=== PATIENT | female | born 1945 | race Caucasian/White ===

== ENCOUNTER 2016-11-03 15:35 | Emergency (ER) | payer MEDICARE, OTHER ==
[~2016-11-03] VITALS: Ht 149.9 cm; Wt 56.8 kg
[2016-11-03] MEDS ORDERED: ACETAMINOPHEN 500 MG TABLET PO ONE (16:00)
[2016-11-03] MEDS ORDERED: PERTUSS(ACELL),DIPH,TET VAC/PF 0.5 ML VIAL IM ONE (16:15)
[2016-11-03] MEDS ORDERED: FentaNYL CITRATE-PF 100 MCG/2 ML VIAL IVP ONE (17:30)
[2016-11-03] MEDS ORDERED: MIDAZOLAM HCL 5 MG/ML VIAL IVP ONE (17:30)
[2016-11-03] MEDS ORDERED: FLUMAZENIL 0.1 MG/ML 5 ML VIAL IVP ONE (17:50)
[2016-11-03] MEDS ORDERED: NALOXONE HCL 1 MG/ML 2 ML SYG ONE (17:50)
[2016-11-03 18:39] VITALS: BP 104/63
== END 2016-11-03 19:48 | disposition home or self-care (01) ==
LOC: EMS 15:45
DX: S52.531A Colles' fracture of right radius, initial encounter for closed fracture (principal); S80.212A Abrasion, left knee, initial encounter; S80.211A Abrasion, right knee, initial encounter; I10 Essential (primary) hypertension; E11.9 Type 2 diabetes mellitus without complications; W19.XXXA Unspecified fall, initial encounter; Y93.89 Activity, other specified; Y92.89 Other specified places as the place of occurrence of the external cause; Y99.8 Other external cause status
CPT/HCPCS: 25605; 73100; 73110; 90471; 90715; 96374; 96375; 99285; J2250; J3010; 82962; J2310; J3490

== ENCOUNTER 2016-11-10 11:32 | Emergency (ER) | payer MEDICARE, OTHER ==
[~2016-11-10] VITALS: Ht 149.9 cm; Wt 56.8 kg
[2016-11-10 12:03] LABS: GLUCOSE,POINT OF CARE 244 MG/DL (70-110)
[2016-11-10 15:08] VITALS: BP 129/68
== END 2016-11-10 15:13 | disposition home or self-care (01) ==
LOC: EMS 11:34
DX: S62.101A Fracture of unspecified carpal bone, right wrist, initial encounter for closed fracture (principal); M79.602 Pain in left arm; I10 Essential (primary) hypertension; E11.9 Type 2 diabetes mellitus without complications; R20.2 Paresthesia of skin; W18.30XA Fall on same level, unspecified, initial encounter; Y93.89 Activity, other specified; Y92.9 Unspecified place or not applicable; Y99.9 Unspecified external cause status
CPT/HCPCS: 82962; 99283

== ENCOUNTER 2017-10-23 07:57 | Day surgery (SDC) | payer MEDICARE, OTHER ==
[~2017-10-23] VITALS: Ht 148.6 cm; Wt 47.3 kg
[2017-10-23] MEDS ORDERED: METOPROLOL TARTRATE 50 MG TABLET PO PRN (08:30)
[2017-10-23] MEDS ORDERED: 0.9% SODIUM CHLORIDE 10 ML SYRINGE IVP PRN (08:30)
[2017-10-23 08:59] LABS: ANION GAP 9 mmol/L (8-16); CALCIUM, TOTAL 8.4 mg/dL (8.8-10.5); CARBON DIOXIDE 28 mmol/L (22-29); CHLORIDE 102 mmol/L (98-107); CREATININE 0.58 mg/dL (0.60-1.30); GLOMERULAR FILTR. RATE CALC > 60 mL/min (>60); GLUCOSE,RANDOM 178 mg/dL (70-110); POTASSIUM 3.7 mmol/L (3.5-5.1); SODIUM SERUM 139 mmol/L (136-145); UREA NITROGEN, BLOOD 14 mg/dL (7-18)
[2017-10-23] MEDS ORDERED: METF500T6 PO (09:06)
[2017-10-23] MEDS ORDERED: SIMV-259 PO (09:06)
[2017-10-23] MEDS ORDERED: METO25 PO (09:06)
[2017-10-23] MEDS ORDERED: MECL-111 PO (09:06)
[2017-10-23] MEDS ORDERED: ASPI-1182 PO (09:06)
[2017-10-23] MEDS ORDERED: [UNRECOGNIZED DRUG - OTHER] PO (09:06)
[2017-10-23] MEDS ORDERED: NITROGLYCERIN 400 MCG/SUBLINGUAL SPRAY 4.9 GM BOTTLE SL ONE ×2 (09:35→09:51)
[2017-10-23] MEDS ORDERED: METOPROLOL TARTRATE 5 MG/5 ML VIAL ONE (09:35)
[2017-10-23] MEDS ORDERED: SODIUM CHLORIDE 0.9% 100 ML ONE (09:36)
[2017-10-23] MEDS ORDERED: IOVERSOL 350 MG/ML 150 ML VIAL ONE (09:36)
[2017-10-23] MEDS ORDERED: METOPROLOL TARTRATE 5 MG/5 ML VIAL IVP ONE (09:49)
== END 2017-10-23 10:40 | disposition home or self-care (01) ==
LOC: SURGERY 07:57 → EDSTATUS 10:00 → SURGERY 10:40
PROVIDERS: ATTEND Internal Medicine Cardiovascular Disease
DX: R94.39 Abnormal result of other cardiovascular function study (principal); R07.9 Chest pain, unspecified; E11.9 Type 2 diabetes mellitus without complications; E78.00 Pure hypercholesterolemia, unspecified; Z72.89 Other problems related to lifestyle; Z98.890 Other specified postprocedural states; Z91.81 History of falling
CPT/HCPCS: 36415; 75574; 80048; 93005; J3490; J7050; Q9967